=== PATIENT | female | born 1955 | race American Indian/Alaskan Native ===

== ENCOUNTER → 2017-11-22 | Outpatient (CLI) | payer OTHER | LOC: SLR 11:00 | PROVIDERS: ATTEND Otolaryngology | DX: G47.30 Sleep apnea, unspecified (principal) | CPT/HCPCS: 95810 ==

== ENCOUNTER 2017-12-05 11:00 | Outpatient (CLI) | payer OTHER | END 2017-12-05 11:01 | disposition home or self-care (01) | LOC: SLR 11:00 | PROVIDERS: ATTEND Otolaryngology | DX: G47.30 Sleep apnea, unspecified (principal) | CPT/HCPCS: 95811 ==

== ENCOUNTER 2018-06-13 08:00 | Inpatient (IN) | payer OTHER ==
[2018-07-18] MEDS ORDERED: ZEMURON IV ONE (08:00)
[2018-07-18] MEDS ORDERED: XYLOCAINE MPF 2% ONE (08:00)
[2018-07-18] MEDS ORDERED: SUBLIMAZE ONE (08:01)
[2018-07-18] MEDS ORDERED: DIPRIVAN 10 MG/ML IV ONE (08:01)
--- NOTE | 2018-07-18 09:23 | Anesthesia Consultation ---
Anesthesia Consult and Med Hx Date of service: 07/18/18 - Airway Anesthetic Teeth Evaluation: Partials ROM Head & Neck: Adequate Mental/Hyoid Distance: Adequate Mallampati Class: Class III Intubation Access Assessment: Possibly Difficult - Pulmonary Exam CTA: Yes - Cardiac Exam Cardiac Exam: RRR - Pre-Operative Health Status ASA Pre-Surgery Classification: ASA3 Proposed Anesthetic Plan: General - Pulmonary Hx Smoking: Yes ([id number]) Hx Asthma: No Hx Respiratory Symptoms: No SOB: Yes (with exertion.) COPD: No Hx Sleep Apnea: Yes (+ CPAP) - Cardiovascular System Hx Hypertension: Yes Hx Heart Attack/AMI: No Hx Percutaneous Transluminal Coronary Angioplasty (PTCA): No - Central Nervous System Hx Seizures: No CVA: No Hx Psychiatric Problems: Yes - Gastrointestinal Hx Gastroesophageal Reflux Disease: No - Endocrine Hx Renal Disease: No Hx Liver Disease: No Hx Insulin Dependent Diabetes: No Hx Thyroid Disease: No - Hematic Hx Anemia: No - Other Systems Hx Cancer: No Hx Obesity: Yes - Additional Comments Anesthesia Medical History Comments: No hx anesthetic complications. Normal nuclear ST on chart. Did not take antihypertensives today.
--- NOTE | 2018-07-18 09:24 | Anesthesia Day of Surgery ---
Anesthesia Day of Surgery - Day of Surgery Patient Examined: Yes Patient H&P Reviewed: Yes Patient is NPO: Yes
[2018-07-18] MEDS ORDERED: DILAUDID IV PRN (09:42)
[2018-07-18] MEDS ORDERED: APRESOLINE IV PRN (09:42)
[2018-07-18] MEDS ORDERED: MYLICON PO PRN (09:42)
[2018-07-18] MEDS ORDERED: NORCO PO PRN (09:42)
[2018-07-18] MEDS ORDERED: REGLAN IV PRN (09:42)
[2018-07-18] MEDS ORDERED: ZOFRAN IV PRN (09:42)
[2018-07-18] MEDS ORDERED: MORPHINE IV PRN (09:42)
[2018-07-18] MEDS ORDERED: MARCAINE-EPI 0.5%-1:200,000 INFILTRATI ONE ×3 (09:49→13:00)
[2018-07-18] MEDS ORDERED: XYLOCAINE 1% 20 mL ONE (09:49)
[2018-07-18] MEDS ORDERED: FLAGYL 500 MG/100 ML 500 MG/100 ML BAG IV NR ×3 (10:00→12:00)
[2018-07-18] MEDS ORDERED: LEVAQUIN 500MG/100ML 500 MG/100 ML BAG IV NR (10:00)
[2018-07-18] MEDS ORDERED: VERSED IV NR (10:00)
[2018-07-18] MEDS ORDERED: LOVENOX SUB-Q NR ×2 (10:00)
[2018-07-18] MEDS ORDERED: ANCEF/STERILE WATER 2 GM/20 ML IV NR (10:00)
[2018-07-18] MEDS ORDERED: LACTATED RINGERS 1,000 ML IV SCH (10:00)
[2018-07-18] MEDS: LACTATED RINGERS 1,000 ML IV SCH ×2 (10:40→22:01)
[2018-07-18] MEDS ORDERED: TRANSDERM-SCOP TD SCH (11:00)
[2018-07-18] MEDS ORDERED: TRANSDERM-SCOP TD NR (11:00)
[2018-07-18] MEDS ORDERED: VANCOMYCIN/NS 1 GM/250 ML 1 GM/250 ML BAG IV NR (12:00)
[2018-07-18] MEDS ORDERED: NACL 0.9% IR ONE (13:00)
[2018-07-18] MEDS ORDERED: XYLOCAINE 1% 20 mL INFILTRATI ONE ×2 (13:00)
[2018-07-18] MEDS ORDERED: ROBINUL ONE (13:03)
[2018-07-18] MEDS ORDERED: NACL 0.9% 1000 ML 1,000 ML ONE (13:14)
[2018-07-18] MEDS ORDERED: ZOFRAN ONE (13:37)
[2018-07-18] MEDS: DILAUDID IV PRN ×2 (14:30→14:53)
[2018-07-18] MEDS ORDERED: TORADOL IV PRN (14:47)
--- NOTE | 2018-07-18 15:19 | Post Anesthesia Evaluation ---
- Post Anesthesia Evaluation Patient Participated: Yes Airway Patent: Yes Stable Respiratory Function: Yes Nausea/Vomiting: No Temp > 96.8F: Yes Pain Manageable: Yes Adequeate Hydration: Yes Anesthesia Complications: No
--- NOTE | 2018-07-18 21:05 | Operative Report ---
SURGEON: Domingo Torres M.D., Bean Bowers M.D. WELDING ESTIMATOR: Kam Breen M.D. PREOPERATIVE DIAGNOSIS: Morbid obesity. POSTOPERATIVE DIAGNOSES: Extensive adhesions, morbid obesity. OPERATION: 1. Laparoscopic adhesiolysis greater than 30 minutes. 2. Laparoscopic sleeve gastrectomy. 3. Laparoscopic hiatal hernia repair. ANESTHESIA: General endotracheal anesthesia. COMPLICATIONS: None. BLEEDING: Less than 30 mL. SPECIMENS: Gastric remnant. INDICATIONS: The patient is a 62-year-old female with a history of morbid obesity refractory to diet and exercise. She has undergone the preoperative bariatric workup and wishes for a weight loss operation. She has had multiple hernia repairs in the past. The risks, complications, and alternatives were explained to the patient. Informed consent was obtained. DESCRIPTION OF PROCEDURE: The patient was brought to the operating room where she was placed in supine position and underwent general endotracheal intubation. She received preoperative antibiotics and DVT prophylaxis. She was prepped and draped in usual sterile fashion and then a time-out was called to ensure proper patient identification and operation. A stab incision was made in the left upper quadrant with insertion of a Veress needle and insufflation achieved to 18 mmHg. A 5 mm port was placed via Optiview trocar in the right lateral quadrant. Upon intra-abdominal view, she was noted to have extensive adhesions from her prior multiple hernia repairs with mesh with a combination of omental and bowel adhesions to the mesh itself. Under direct visualization, we placed additional two 5 mm ports in the right lateral quadrant and then carefully began taking down the adhesions with a combination of sharp dissection and the LigaSure device. We did eventually place 2 additional 5 mm ports in the right lateral quadrant in order to clear up enough space for proper visualization. There were no enterotomies noted during the adhesiolysis. Lysis of adhesions took a total of 30 minutes in order to clear up enough space to see the foregut structures. After this, a 5 mm port was placed in the subxiphoid region and a liver retractor was then placed. The patient was placed in steep reverse Trendelenburg. A hydrodissection was then performed dissecting out the right and left robert extenuating a small hiatal hernia. The angle of His was dissected out. I then went and divided the gastrocolic ligament from the greater curvature of the stomach with a LigaSure device entirely freeing up the stomach. This was continued antegrade onto the duodenum for about 6 cm. At this point, Anesthesia placed a 40-Syrian bougie and then a sleeve gastrectomy was then performed with several staple loads cauterizing the staple line after each fire and decreasing the insufflation pressures to look for bleeding. Next, an anterior cruroplasty was then performed with 0 Surgidac suture. Anterior fundoplication was then performed from the anterior fundus to the left robert of the diaphragm. The gastric remnant was removed from the right lateral port via the 15 mm trocar. I did have to dilate the fascia in order to remove the stomach in its entirety. The 15 mm port site was then closed with a [id number] #1 PDS using a Javi-Sade. All the air was then desufflated and the incisions were closed with 4-0 Monocryl. Sterile bandages were placed over top after injection of local analgesia. The patient was then extubated and left the operating room in stable condition. Counts were correct. JOB# [id number] NISSA/LASHA SANTANA
[2018-07-19 04:42] LABS: Basophils % (Auto) 0.1 % (0.0-1.8); Eosinophils % (Auto) 0.2 % (0.0-4.3); Hematocrit 39.6 % (30.3-42.9); Hemoglobin 12.7 gm/dl (10.1-14.3); Lymphocytes # (Auto) 0.9 K/mm3 (1.2-5.4); Lymphocytes % (Auto) 11.2 % (13.4-35.0); Mean Corpuscular HGB Conc 32 % (30-34); Mean Corpuscular Hemoglobin 27 pg (28-32); Mean Corpuscular Volume 85 fl (79-97); Monocytes # (Auto) 0.6 K/mm3 (0.0-0.8); Monocytes % (Auto) 7.9 % (0.0-7.3); Platelet Count 245 K/mm3 (140-440); Red Blood Count 4.68 M/mm3 (3.65-5.03); Red Cell Distribution Width 15.5 % (13.2-15.2)
[2018-07-19 05:20] LABS: BUN/Creatinine Ratio 18; Blood Urea Nitrogen 18 mg/dL (7-17); Calcium 9.1 mg/dL (8.4-10.2); Hemolysis Index 3
--- NOTE | 2018-07-19 07:13 | Progress Note ---
Assessment and Plan 62F MO sp lap sleeve gastrectomy, KAILASH, HHR #1 sp LS, KAILASH - pain control - nausea control - ambulate - bariatric CLD - discussed postop care and diet - all Rx given at preop visit Subjective Date of service: 07/19/18 Interval history: Did well overnight. No issues. Tolerated a CLD. ambulated. Objective - Exam Narrative Exam: Gen: AAO, NAD, HEENT: Anicteric HEART: RRR Lungs: CTAB Abd: Soft, MO, NT, ND, bandages cdi EXT: NO le edema - Constitutional Vitals: Vital Signs - 12hr 07/18/18 07/19/18 07/19/18 20:08 00:09 04:58 Temperature 98.2 F 98.9 F 98.6 F Pulse Rate 64 68 67 Respiratory 20 20 20 Rate Blood Pressure 121/57 124/58 103/59 O2 Sat by Pulse 96 96 94 Oximetry - Labs CBC & Chem 7: 07/19/18 04:07 07/19/18 04:07 Labs: Abnormal lab results 07/19/18 07/19/18 Range/Units 04:07 04:07 MCH 27 L (28-32) pg RDW 15.5 H (13.2-15.2) % Lymph % (Auto) 11.2 L (13.4-35.0) % [place] % (Auto) 7.9 H (0.0-7.3) % Lymph # 0.9 L (1.2-5.4) K/mm3 Seg Neutrophils % 80.6 H (40.0-70.0) % BUN 18 H (7-17) mg/dL Glucose 103 H (65-100) mg/dL
--- NOTE | 2018-07-19 07:15 | Discharge Summary ---
Providers - Providers Date of Admission: 07/18/18 07:54 Date of discharge: 07/19/18 Attending physician: RODERICK BOWERS Primary care physician: ANAYELI HAGER Hospitalization Reason for admission: postop Condition: Good Procedures: 07/18/18: Laparoscopic lysis of adhesions, sleeve gastrectomy, HHR Hospital course: 62F admitted after her operation for routine monitoring. No issues overnight. Did well. Tolerated a CLD. She was sent home in stable condition. Disposition: DC-01 TO HOME OR SELFCARE Core Measure Documentation - Palliative Care Palliative Care/ Comfort Measures: Not Applicable - Core Measures Any of the following diagnoses?: none - VTE Discharge Requirements Deep Vein Thrombosis/Pulmonary Embolism Present on Admission: No - Acute [place] Discharge Requirements Aspirin at discharge: No Reason for no aspirin on DC: Surgical contraindication - Heart Failure Discharge Requirements ROMINA/ARB for LVSD if EF <40%: Not Applicable - Stroke Discharge Requirements Statin for LDL = or >70 mg/dl on DC: Not Applicable Exam - Physical Exam Narrative exam: Gen: AAO, NAD, HEENT: Anicteric HEART: RRR Lungs: CTAB Abd: Soft, MO, NT, ND, bandages cdi EXT: NO le edema - Constitutional Vitals: Temp Pulse Resp BP Pulse Ox 98.6 F 67 20 103/59 94 07/19/18 04:58 07/19/18 04:58 07/19/18 04:58 07/19/18 04:58 07/19/18 04:58 Plan Diet: clear liquids Wound: keep clean and dry Additional Instructions: josué Bowers as already scheduled Follow up with: ANAYELI HAGER MD [Primary Care Provider] - 7 Days
[2018-07-19] MEDS ORDERED: LEXAPRO PO SCH (10:00)
[2018-07-19] MEDS ORDERED: HCTZ PO SCH (10:00)
[2018-07-19] MEDS ORDERED: COZAAR PO SCH (10:00)
[2018-07-19] MEDS ORDERED: LOVENOX SUB-Q SCH (11:30)
[2018-07-19 11:52] VITALS: BP 146/67
== END 2018-07-19 12:50 | disposition home or self-care (01) | DRG 908 ==
LOC: 3A 07-18 07:54 → 3B-SURG 07-18 15:18
PROVIDERS: ADMIT Specialist; ATTEND Specialist
PROC: 0DB64Z3 Excision of Stomach, Percutaneous Endoscopic Approach, Vertical (ICD-10-PCS; principal; 2018-07-18)
PROC: 0DNU4ZZ Release Omentum, Percutaneous Endoscopic Approach (ICD-10-PCS; 2018-07-18)
PROC: 0BQT4ZZ Repair Diaphragm, Percutaneous Endoscopic Approach (ICD-10-PCS; 2018-07-18)
PROC: 0DN84ZZ Release Small Intestine, Percutaneous Endoscopic Approach (ICD-10-PCS; 2018-07-18)
DX: T85.898A Other specified complication of other internal prosthetic devices, implants and grafts, initial encounter (principal); Z68.43 Body mass index [BMI] 50.0-59.9, adult; E66.01 Morbid (severe) obesity due to excess calories; Y83.8 Other surgical procedures as the cause of abnormal reaction of the patient, or of later complication, without mention of misadventure at the time of the procedure; G47.30 Sleep apnea, unspecified; I10 Essential (primary) hypertension; Y92.89 Other specified places as the place of occurrence of the external cause; Z71.3 Dietary counseling and surveillance; Z87.891 Personal history of nicotine dependence
CPT/HCPCS: 36415; 80048; 85025; 88307; 88342; J1170; J1650; J1885; J1956; J2250; J2405; J2704; J2765; J3010; J7030; J7120